=== PATIENT | female | born 1985 ===

== ENCOUNTER 2022-07-12 16:01 | Outpatient (REF) | payer BC, SELFPAY ==
--- NOTE | 2022-07-12 14:45 | PAPFT_PTH ---
PATIENT: Natalia Edward LOC: [facility] U#:[id number] AGE/SX: 36/F ROOM: RE07/12/[address]: Jodie Moscoso : 1985 BED: DIS: 07/12/2022 SPEC #: [id number] RECD: 07/13/22 12:44 STATUS: ONEAL RECindy #: [id number] CAYLA: 07/12/22 14:[address]: Jodie Moscoso DEPT: [facility] Cytology RECD BY: Marlen Dasilva Tissues: 1 - CX/ENDOCX FOR PAP SMEARS Procedures: PAP THIN PREP/[facility] Screening HPV DNA PROBE Comments: [id number] (CHLAMYDIA/GC)
[2022-07-14 15:14] LABS: Chlamydia Result Negative (Negative); GC Result Negative (Negative)
== END 2022-07-12 16:02 | disposition home or self-care (01) ==
LOC: NCHCN 16:01
PROVIDERS: Visit Provider Nurse Practitioner Family
DX: Z11.3 Encounter for screening for infections with a predominantly sexual mode of transmission (principal); Z12.4 Encounter for screening for malignant neoplasm of cervix; N76.0 Acute vaginitis; Z11.51 Encounter for screening for human papillomavirus (HPV)
CPT/HCPCS: 87491; 87591; 88142; 87624

== ENCOUNTER 2024-12-13 12:32 | Outpatient (REF) | payer BC, SELFPAY ==
[2024-12-13 15:24] LABS: TSH 2.33 uIU/mL (0.36-3.74)
[2024-12-13 23:05] LABS: Progesterone 0.4 ng/mL (See Table)
[2024-12-17 12:41] LABS: Estradiol, Mass Spectrometry 150 pg/mL; Estrone 106 pg/mL
== END 2024-12-13 12:33 | disposition home or self-care (01) ==
LOC: NCHCN 12:32
PROVIDERS: Visit Provider Physician Assistant
DX: R45.4 Irritability and anger (principal)
CPT/HCPCS: 82533; 82670; 82679; 84144; 84443